=== PATIENT | male | born 1995 | race Two or more races ===

== ENCOUNTER 2018-08-31 19:25 | Emergency (ER) | payer OTHER ==
[~2018-08-31] VITALS: Ht 172.7 cm; Wt 87.9 kg
[2018-08-31 19:31] VITALS: BP 138/81
== END 2018-08-31 20:38 | disposition home or self-care (01) ==
LOC: ED 20:00
DX: J06.9 Acute upper respiratory infection, unspecified (principal)
CPT/HCPCS: 71046; 99283

== ENCOUNTER 2019-04-21 14:32 | Emergency (ER) | payer SELFPAY ==
[~2019-04-21] VITALS: Ht 172.7 cm; Wt 87.0 kg
[2019-04-21 14:34] VITALS: BP 125/87
== END 2019-04-21 15:06 ==
LOC: ED 14:50
DX: J01.00 Acute maxillary sinusitis, unspecified (principal)
CPT/HCPCS: 99283

== ENCOUNTER 2019-11-22 12:24 | Emergency (ER) | payer OTHER ==
[~2019-11-22] VITALS: Ht 172.7 cm; Wt 87.8 kg
[2019-11-22 13:30] LABS: BASOPHILS # (AUTO) 0.02 x10^3/uL (0-0.1); BASOPHILS % (AUTO) 0 % (0-1); EOSINOPHILS # (AUTO) 0.02 x10^3/uL (0-0.4); EOSINOPHILS % (AUTO) 0 % (1-7); LYMPHOCYTES # (AUTO) 1.72 x10^3/uL (1-3.4); LYMPHOCYTES % (AUTO) 25 % (22-44); MD NO; MEAN CORPUSCULAR HEMOGLOBIN 29.5 pg (27.5-34.5); MEAN CORPUSCULAR HGB CONC 32.9 g/dL (33.2-36.2); MEAN PLATELET VOLUME 9.6 fL (7.4-10.4); MONOCYTES # (AUTO) 0.21 x10^3/uL (0.2-0.8); MONOCYTES % (AUTO) 3 % (2-9); NEUTROPHILS # (AUTO) 4.85 x10^3/uL (1.8-6.8); NEUTROPHILS % (AUTO) 71 % (42-75); PLATELET COUNT 198 x10^3/uL (130-400); RED BLOOD COUNT 5.05 x10^6/uL (4.38-5.82); RED CELL DISTRIBUTION WIDTH 12.8 % (9.4-14.8)
[2019-11-22 13:42] LABS: ALBUMIN 4.3 g/dL (3.4-5.0); ANION GAP 8 mmol/L (5-15); CALCIUM 9.4 mg/dL (8.5-10.1); CHLORIDE 104 mmol/L (98-107)
[2019-11-22 13:48] LABS: ALANINE AMINOTRANSFERASE 39 U/L (12-78); ALKALINE PHOSPHATASE 68 U/L (45-117); BILIRUBIN,TOTAL 0.7 mg/dL (0.2-1.0); CREATININE 0.84 mg/dL (0.7-1.3); TOTAL PROTEIN 7.8 g/dL (6.4-8.2); TROPONIN I < 0.015 ng/mL (0.000-0.045)
--- NOTE | 2019-11-22 13:59 | NUR ---
PT UPRIGHT ON GURNEY AWAKE & CALMER, RESPONDS APPROP TO STAFF, NAD, COMFORT MEASURES PROVIDED, GF AT BS, CALL LIGHT WITHIN REACH.
[2019-11-22 14:55] VITALS: BP 121/64
== END 2019-11-22 15:27 | disposition home or self-care (01) ==
LOC: ED 15:01
DX: R55 Syncope and collapse (principal); R00.2 Palpitations; R11.0 Nausea; R42 Dizziness and giddiness
CPT/HCPCS: 36415; 71045; 80053; 82962; 83735; 84443; 84484; 85025; 93005; 99285